=== PATIENT | female | born 1960 | race Caucasian/White ===

== ENCOUNTER 2020-12-20 17:41 | Emergency (ER) | payer OTHER, MEDICARE ==
--- NOTE | 2020-12-20 17:43 | ERPHSYRPT ---
- History of Present Illness Time Seen by Provider: 12/20/20 17:43 Source: patient, family Exam Limitations: no limitations Physician History: This is a 60-year-old obese white female who has a history of relatively recent tibial plateau fractures which was evaluated by orthopedics and treated. She has been up and around and ambulating. Within the last 2 to 3 weeks she is felt a twisting sensation. The most recent was yesterday and today she is having more pain in the right knee area. She actually stated that she had to move her kneecap manually over approximately 1 to 2 inches. Her main concerns are #1 is there a new fracture in #2 do I have a blood clot in the right leg. She has pain and tightness in that right calf. Patient is not short of breath has had no cough and no hemoptysis. She has no chest pain. Patient has an appointment to see a pain specialist on 12/24/2020 Occurred: yesterday Method of Injury: twisted (A couple of times in the last 2 to 3 weeks) Quality: aching Severity of Pain-Max: moderate Severity of Pain-Current: mild Modifying Factors: Improves With: movement Allergies/Adverse Reactions: Sulfa (Sulfonamide Antibiotics) Allergy (Verified 12/20/20 18:12) Home Medications: Hydrocodone/Acetaminophen [Hydrocodone-Acetamin 10-325 mg] 1 each PO DAILY PRN PRN 12/20/20 [History] Methocarbamol 500 mg PO DAILY PRN PRN 12/20/20 [History] Travel Risk - International Travel Have you traveled outside of the country in past 3 weeks: No - Coronavirus Screening Are you exhibiting any of the following symptoms?: No Close contact with a COVID-19 positive Pt in past 14-21 Days: No - Vaccine Status Have you recieved a Covid-19 vaccination: No - Review of Systems Constitutional: No Symptoms Eyes: No Symptoms Ears, Nose, & Throat: No Symptoms Respiratory: No Symptoms Cardiac: No Symptoms Abdominal/Gastrointestinal: No Symptoms Genitourinary Symptoms: No Symptoms Musculoskeletal: Joint Pain (Knee), Other (Tight right calf) Skin: No Symptoms Neurological: No Symptoms Psychological: No Symptoms Endocrine: No Symptoms Hematologic/Lymphatic: No Symptoms Immunological/Allergic: No Symptoms All Other Systems: Reviewed and Negative - Past Medical History Pertinent Past Medical History: Yes - Past Surgical History Past Surgical History: Yes - Nursing Vital Signs Nursing Vital Signs: Initial Vital Signs Temperature 98.6 F 12/20/20 18:00 Pulse Rate 83 12/20/20 18:00 Respiratory Rate 18 12/20/20 18:00 Blood Pressure 161/97 12/20/20 18:00 O2 Sat by Pulse Oximetry 97 12/20/20 18:00 Pain Scale Pain Intensity 7 - Physical Exam General Appearance: no apparent distress, alert, anxiety, obese Eyes, Ears, Nose, Throat Exam: normal ENT inspection, moist mucous membranes Neck Exam: normal inspection, non-tender, supple, full range of motion Cardiovascular/Respiratory Exam: chest non-tender, no respiratory distress Abdominal Exam: non-tender Back Exam: normal inspection, normal range of motion, No CVA tenderness, No vertebral tenderness Neuro/Tendon Exam: normal sensation, normal motor functions (Patient of the right knee and right lower leg shows no significant difference when comparing right leg to left leg. There is no obvious difference visually in the size of right calf compared to left calf. There is no redness there is no warmth. There is palpable pedal pulses that are equal bilate) Mental Status Exam: alert, oriented x 3, cooperative Skin Exam: normal color, warm, dry SpO2 Interpretation: normal O2 Delivery: Room Air - Course Nursing assessment & vital signs reviewed: Yes Ordered Tests: Active Orders 24 hr Category Date Time Status KNEE (3 VIEWS) Stat Exams 12/20/20 18:11 Taken D-DIMER QUANTITATIVE Stat Lab 12/20/20 19:05 Completed Lab/Rad Data: Laboratory Results 12/20/20 Range/Units 19:05 D-Dimer 353 (215-500) ng/mL - Progress Progress: pain not gone completely Progress Note: 12/20/20 19:28 X-ray of the right knee shows no evidence of any acute fracture or dislocation. This was also confirmed by the radiologist over read the x-ray. Counseled pt/family regarding: lab results, diagnosis, need for follow-up, rad results - Departure Departure Disposition: Home Clinical Impression: Right anterior knee pain Condition: Stable Critical Care Time: No Referrals: Kita PATEL [Primary Care Provider] - Additional Instructions: Your appointment with a pain specialist. Call your orthopedic surgeon tomorrow for further management of any knee issues. Increase your hydrocodone medication to 2 or 3 times a day if needed.
[2020-12-20 18:11] VITALS: BP 161/97; PULSE 83; O2SAT 97
--- NOTE | 2020-12-20 20:36 | XRAY ---
Exam: 3 view right knee series from 12/20/2020. Comparison: None. Indication: Patient states she twisted her right knee and now has pain throughout the right knee joint; history of bilateral tibial plateau fractures in May,. Findings: AP, internal oblique, and a crosstable lateral radiographs of the right knee were obtained. I see no acute fracture, dislocation, or significant suprapatellar effusion. Minimal spurring is seen at the upper posterior and lower posterior margins of the right patella. A calcified fabella is seen posterior to the right knee on the crosstable lateral view. There is an incidental small bone island within the lateral aspect of the proximal right tibia. The femoral tibial joint appears adequately maintained. No other focal bone lesion is seen. Impression: 1. I see no evidence of right knee fracture, dislocation, or significant suprapatellar effusion. 2. Other incidental findings, as discussed above.
== END 2020-12-20 20:00 | disposition home or self-care (01) ==
LOC: ED 17:41
DX: M25.561 Pain in right knee (principal); X50.1XXA Overexertion from prolonged static or awkward postures, initial encounter; Y93.9 Activity, unspecified; Y92.89 Other specified places as the place of occurrence of the external cause
CPT/HCPCS: 36415; 73562; 85379; 99283